=== PATIENT | female | born 1940 | race Caucasian/White ===

== ENCOUNTER 2019-06-20 12:13 | Inpatient (IN) | payer MEDICARE, MEDICAID ==
[~2019-06-20] VITALS: Ht 149.9 cm; Wt 70.3 kg
[~2019-06-20 12:13] MED LIST: AMLO5TAB PO; ASPI-1718 PO; CARV6.25 PO; DORZ10SO23 OP; HYDR-3298 PO; INSU100S45 SUBQ; LATA2.5S8 OP; LIP80 PO; MOME0.051 NS; SYN.075 PO
--- NOTE | 2019-06-20 12:13 | NUR ---
PT BIBA TO BED 09, RN EVALUATING PT AT BEDSIDE.
[2019-06-20 12:22] VITALS: BP 154/46
--- NOTE | 2019-06-20 12:22 | NUR ---
Dr. Duran is evaluating the patient at bedside.
[2019-06-20] MEDS ORDERED: ONDANSETRON 4 MG/2 ML VIAL IVP ONE (12:35)
[2019-06-20] MEDS ORDERED: MORPHINE SULFATE 2 MG/ML SYR IVP ONE (12:35)
--- NOTE | 2019-06-20 12:42 | NUR ---
LABS AT BEDSIDE, DRAWING ORDERED LABS
--- NOTE | 2019-06-20 12:55 | NUR ---
REPOSITIONED PT UP IN [facility]; NC 3L 02 APPLIED, 96% RA HAD BEEN C/O FATIGUED WITH MINIMAL WALKING SINCE 3 DAYS---WORSE TODAY WITH CHEST PAIN NON RADIATING TIGHTNESS AFTER MEDICATED PT DENIES PAIN, BREATHING EASIER WHILE ON OXYGEN
[2019-06-20 12:58] LABS: BASOPHILS # (AUTO) 0.1 K/uL (0.00-0.22); BASOPHILS % (AUTO) 0.8 % (0.0-2.0); EOSINOPHILS # (AUTO) 0.2 K/uL (0-0.4); MEAN CORPUSCULAR HEMOGLOBIN 26 pg (27-31); MONOCYTES % (AUTO) 11.3 % (1.7-9.3); NEUTROPHILS % (AUTO) 71.4 % (42.2-75.2)
[2019-06-20 13:05] LABS: EOSINOPHILS % (AUTO) 2.6 % (0.0-4.0); HEMATOCRIT 20.4 % (36-48); LYMPHOCYTES # (AUTO) 1.2 K/uL (2.5-16.5); LYMPHOCYTES % (AUTO) 13.9 % (20.5-51.1); MEAN CORPUSCULAR HGB CONC 32 g/dL (33-37); MEAN CORPUSCULAR VOLUME 81.1 fL (80-94); NEUTROPHILS # (AUTO) 6.4 K/uL (1.8-7.7); PLATELET COUNT (AUTO) 287 K/uL (140-450); RED BLOOD CELL COUNT(AUTO) 2.51 MIL/uL (4.20-5.40); RED CELL DISTRIBUTION WIDTH 16.3 % (11.6-13.7); WHITE BLOOD COUNT (AUTO) 8.9 K/uL (4.8-10.8)
--- NOTE | 2019-06-20 13:08 | NUR ---
Patient returned from CT scan. RN re-evaluating patient at bedside.
[2019-06-20 13:13] LABS: ANION GAP 13.7 (8-16); CARBON DIOXIDE 23.8 mmol/L (21-32); CHLORIDE 103 mmol/L (98-107); CREATININE 0.7 mg/dL (0.6-1.3); GLUCOSE 201 mg/dL (74-106); POTASSIUM 4.5 mmol/L (3.5-5.1); SODIUM SERUM 136 mmol/L (136-145); UREA NITROGEN, BLOOD 22 mg/dL (7-18)
[2019-06-20 13:16] LABS: HEMOGLOBIN 6.6 g/dL (12.0-16.0)
[2019-06-20 13:19] LABS: ALBUMIN 2.7 g/dL (3.4-5.0); ASPARTATE AMINOTRANSFERASE 15 U/L (15-37); TOTAL BILIRUBIN 0.6 mg/dL (0.0-1.0)
[2019-06-20 13:22] LABS: PROTHROMBIN TIME 12.5 secs (10.8-13.4)
--- NOTE | 2019-06-20 14:35 | NUR ---
PT TAKEN TO RESTROOM BY WHEELCHAIR TO GIVE UA
--- NOTE | 2019-06-20 15:26 | NUR ---
LAB IS MADE AWARE BLOOD CONSENT IS SIGNED
[2019-06-20] MEDS ORDERED: GABA400C PO (16:07)
[2019-06-20] MEDS ORDERED: IRBE300T56 PO (16:07)
[2019-06-20] MEDS ORDERED: RIVA20TA PO (16:07)
[2019-06-20] MEDS ORDERED: INSU100I7 SQ (16:07)
[2019-06-20] MEDS ORDERED: BACL10TA4 PO (16:07)
--- NOTE | 2019-06-20 16:15 | NUR ---
PT TO RECEIVE 1 UNIT OF PRB. PT MADE AWARE OF SIGNS/SX TO WATCH FOR DURING TRANSFUSSION, FLANK PAIN, DIZZINESS, SHORT OF BREATH, PAIN. PT VERBALIZED UNDERSTANDING. PRE VS TAKEN, TRANSFUSSION BEGAN AT 1620. VERFIED PT TRANSFUSSION WITH DONALD ASH.
--- NOTE | 2019-06-20 16:45 | NUR ---
PT DENIES PAIN, SOB, DIZZINESS WITH BLOOD TRANSFUSSION. VITAL SIGNS STABLE, IV PATTENT.
[2019-06-20] MEDS ORDERED: ONDANSETRON 4 MG/2 ML VIAL IVP PRN (17:00)
[2019-06-20] MEDS ORDERED: BACLOFEN 10 MG TAB PO PRN (17:00)
[2019-06-20] MEDS ORDERED: MAGNESIUM OXIDE 400 MG TAB PO PRN (17:00)
[2019-06-20] MEDS ORDERED: ZOLPIDEM 5 MG TAB PO PRN (17:00)
[2019-06-20] MEDS ORDERED: POTASSIUM CHLORIDE 10 MEQ TABER PO PRN (17:00)
[2019-06-20] MEDS ORDERED: diphenhydrAMINE 50 MG/ML VIAL IVP PRN (17:00)
[2019-06-20] MEDS ORDERED: cloNIDine 0.1 MG TAB PO PRN (17:00)
[2019-06-20] MEDS ORDERED: ACETAMINOPHEN 325 MG TAB PO PRN (17:00)
[2019-06-20 17:02] LABS: APPEARANCE,URINE CLEAR (CLEAR); BILIRUBIN,URINE NEGATIVE (NEGATIVE); BLOOD, URINE TRACE-L (NEGATIVE); COLOR,URINE YELLOW (YELLOW); LEUKOCYTE ESTERASE ,URINE NEGATIVE (NEGATIVE); NITRITE, URINE NEGATIVE (NEGATIVE); UGLUCOSE NEGATIVE (NEGATIVE)
[2019-06-20 17:25] VITALS: BP 162/57
--- NOTE | 2019-06-20 17:25 | NUR ---
Patient will be admitted to care of DR EDWARDS. Admited to MED SURGE TELE. Will go to room 126B. Belongings list completed. Report to DONALD MORENO.
[2019-06-20] MEDS: GABAPENTIN 300 MG CAP PO SCH (18:21)
--- NOTE | 2019-06-20 18:46 | NUR ---
PT BLOOD TRANSFUSION FINISHED. PT TOLERATED WELL. NO SIGNS OF TRANSFUSION REACTION NOTED. 2ND BAG ON PACKED RBC'S TO BE INFUSED BY WAITER AND CASHIER WHEN READY.
[2019-06-20 19:18] LABS: RBC,URINE 0-5 /HPF (0-5); WBC,URINE 0-5 /HPF (0-5)
--- NOTE | 2019-06-20 19:19 | NUR ---
RECEIVED PT FROM ED DEPARTMENT FOR CONTINUITY OF CARE. PT IS AAOX4, CUBAN SPEAKING. PT DAUGHTER AT BEDSIDE TO HELP TRANSLATE AND ANSWER QUESTIONS. PT SKIN IS INTACT, VITALS STABLE. AMBULATORY. EXPLAINED POC TO PT AND PT AND FAMILY VERBALIZED UNDERSTANDING. SAFETY MEASURES IN PLACE. MRSA TAKEN. WILL ROUND FREQUENTLY ON P.
--- NOTE | 2019-06-20 19:48 | NUR ---
ENDORSED PT TO MID LEVEL GAME DESIGNER FOR CONTINUITY OF CARE. PT IN STABLE CONDITION AT THIS TIME.
[2019-06-20 20:00] VITALS: BP 169/45
[2019-06-20] MEDS: ATORVASTATIN 80 MG TAB PO SCH (20:20)
[2019-06-20] MEDS: CARVEDILOL 6.25 MG TAB PO SCH (20:21)
--- NOTE | 2019-06-20 20:30 | NUR ---
SECOND UNIT OF BLOOD TRANSFUSION INITIATED.
[2019-06-21] VITALS: BP 150/48
--- NOTE | 2019-06-21 01:00 | NUR ---
BLOOD TRANSFUSION DONE. VITAL SIGNS WITHIN NORMAL LIMITS. NO S/S OF DISTRESS NOTED
[2019-06-21] MEDS: DEXT 5% / NACL 0.45% 1,000 ML IV SCH ×2 (01:22→17:03)
[2019-06-21 02:06] LABS: BASOPHILS # (AUTO) 0.1 K/uL (0.00-0.22); BASOPHILS % (AUTO) 0.7 % (0.0-2.0); EOSINOPHILS # (AUTO) 0.3 K/uL (0-0.4); EOSINOPHILS % (AUTO) 2.8 % (0.0-4.0); HEMATOCRIT 28.3 % (36-48); HEMOGLOBIN 9.3 g/dL (12.0-16.0); LYMPHOCYTES # (AUTO) 1.8 K/uL (2.5-16.5); LYMPHOCYTES % (AUTO) 17.8 % (20.5-51.1); MEAN CORPUSCULAR HEMOGLOBIN 28 pg (27-31); MEAN CORPUSCULAR HGB CONC 33 g/dL (33-37); MEAN CORPUSCULAR VOLUME 83.2 fL (80-94); MONOCYTES % (AUTO) 10.5 % (1.7-9.3); NEUTROPHILS # (AUTO) 6.7 K/uL (1.8-7.7); NEUTROPHILS % (AUTO) 68.2 % (42.2-75.2); PLATELET COUNT (AUTO) 246 K/uL (140-450); RED CELL DISTRIBUTION WIDTH 15.4 % (11.6-13.7); WHITE BLOOD COUNT (AUTO) 9.8 K/uL (4.8-10.8)
[2019-06-21 02:23] LABS: ALBUMIN 2.7 g/dL (3.4-5.0); ANION GAP 12.6 (8-16); ASPARTATE AMINOTRANSFERASE 16 U/L (15-37); CARBON DIOXIDE 24.5 mmol/L (21-32); CHLORIDE 105 mmol/L (98-107); CREATININE 0.6 mg/dL (0.6-1.3); GLUCOSE 84 mg/dL (74-106); POTASSIUM 4.1 mmol/L (3.5-5.1); SODIUM SERUM 138 mmol/L (136-145); TOTAL BILIRUBIN 0.7 mg/dL (0.0-1.0); UREA NITROGEN, BLOOD 16 mg/dL (7-18)
--- NOTE | 2019-06-21 03:00 | NUR ---
UPDATED DR PEARSON ABOUT THE POST TRANSFUSION CBC AND INFORMED HIM ABOUT THE INCREASED TROPONIN LEVEL OF 0.234. NO NEW ORDERS AT THIS TIME
[2019-06-21 04:02] VITALS: BP 154/59
[2019-06-21 06:11] LABS: BASOPHILS # (AUTO) 0.1 K/uL (0.00-0.22); BASOPHILS % (AUTO) 0.7 % (0.0-2.0); EOSINOPHILS # (AUTO) 0.2 K/uL (0-0.4); EOSINOPHILS % (AUTO) 2.5 % (0.0-4.0); HEMATOCRIT 27.7 % (36-48); LYMPHOCYTES # (AUTO) 1.7 K/uL (2.5-16.5); LYMPHOCYTES % (AUTO) 17.7 % (20.5-51.1); MEAN CORPUSCULAR HEMOGLOBIN 27 pg (27-31); MEAN CORPUSCULAR HGB CONC 33 g/dL (33-37); MEAN CORPUSCULAR VOLUME 83.9 fL (80-94); MONOCYTES # (AUTO) 1.2 K/uL (0.8-1.0); NEUTROPHILS # (AUTO) 6.5 K/uL (1.8-7.7); NEUTROPHILS % (AUTO) 67.1 % (42.2-75.2); PLATELET COUNT (AUTO) 237 K/uL (140-450); RED CELL DISTRIBUTION WIDTH 15.8 % (11.6-13.7); WHITE BLOOD COUNT (AUTO) 9.6 K/uL (4.8-10.8)
[2019-06-21] MEDS: LEVOTHYROXINE 0.05 MG TAB PO SCH (06:53)
--- NOTE | 2019-06-21 07:28 | NUR ---
PT REPORT GIVEN AT BEDSIDE. PT ENDORSED IN STABLE CONDITION
[2019-06-21 08:00] VITALS: BP 158/48
[2019-06-21] MEDS: amLODIPine 5 MG TAB PO SCH (08:27)
[2019-06-21] MEDS: GABAPENTIN 300 MG CAP PO SCH ×3 (08:27→16:52)
--- NOTE | 2019-06-21 08:27 | NUR ---
GIVEN MORNING MEDICATIONS PO. HELD CARVIDOLOL, HR 55 BMP. PATIENT SWALLOWED PILLS WELL. EXPLAINED TO PATIENT AND GRAND-DAUGHTER PURPOSE AND SIDE EFFECTS OF MEDICATIONS. VERBALIZED UNDERSTANDING. CALL LIGHT WITHIN REACH. BED IN LOW. WILL CONTINUE TO MONITOR.
[2019-06-21] MEDS: CARVEDILOL 6.25 MG TAB PO SCH ×2 (08:30→20:12)
--- NOTE | 2019-06-21 09:49 | NUR ---
DR. EDWARDS MADE ROUNDS. SPOKE TO PATIENT AND GRAND-DAUGHTER.
--- NOTE | 2019-06-21 09:58 | NUR ---
PATIENT HAS BEEN SCREENED AND CATEGORIZED MODERATE NUTRITION RISK. PATIENT WILL BE SEEN WITHIN 3-5 DAYS OF ADMISSION. 06/23/19 06/25/[address]
[2019-06-21] MEDS ORDERED: fentaNYL 0.05 MG/ML VIAL ONE (11:16)
[2019-06-21] MEDS ORDERED: MIDAZOLAM 2 MG/2 ML VIAL ONE (11:17)
--- NOTE | 2019-06-21 11:25 | NUR ---
PT IS OFF THE UNIT NOW FOR AN EGD.
[2019-06-21] MEDS ORDERED: fentaNYL 0.075 MG/HR PATCH TD SCH (11:55)
[2019-06-21] MEDS ORDERED: FLUMAZENIL 0.5 MG/5 ML VIAL IVP ONE ×2 (11:55→12:07)
[2019-06-21] MEDS ORDERED: NALOXONE 0.4 MG/ML VIAL IVP ONE (11:55)
[2019-06-21] MEDS ORDERED: MIDAZOLAM 2 MG/2 ML VIAL IVP ONE (11:55)
[2019-06-21 12:00] VITALS: BP 145/42
[2019-06-21] MEDS ORDERED: NALOXONE 0.4 MG/ML VIAL ONE (12:05)
[2019-06-21] MEDS ORDERED: fentaNYL 0.05 MG/ML VIAL IVP ONE (12:15)
--- NOTE | 2019-06-21 12:30 | NUR ---
PATIENT CAME BACK FROM EGD PROCEDURE VIA GURNEY. PATIENT IS AWAKE AND ALERT. NO SIGNS OF DISTRESS NOTED. PATIENT DENIES PAIN. RESPIRATIONS EVEN AND UNLABORED, 2L O2 VIA NC. ON TELE MONITOR. SKIN INTACT. WILL CONTINUE TO MONITOR. BED IN LOW POSITION. CALL LIGHT WITHIN REACH.
[2019-06-21] MEDS ORDERED: BOWEL EVACUANT DRINK 4,000 ML PDS PO SCH (13:00)
--- NOTE | 2019-06-21 14:20 | NUR ---
PATIENT IS RESTING AT THIS TIME. PATIENT DENIES PAIN. WILL CONTINUE TO MONITOR.
[2019-06-21 16:00] VITALS: BP 130/45
--- NOTE | 2019-06-21 16:53 | NUR ---
GIVEN GABAPENTIN PO. EDUCATED PATIENT REGARDING PURPOSE AND SIDE EFFECTS. VERBALIZED UNDERSTANDING. WILL CONTINUE TO MONITOR.
--- NOTE | 2019-06-21 18:31 | NUR ---
PATIENT HAD BM, BLACK IN COLOR. PATIENT DENIES PAIN. WILL CONTINUE TO MONITOR. FAMILY AT BEDSIDE.
--- NOTE | 2019-06-21 19:10 | NUR ---
ENDORSED PT TO TEXTILES PRINTER NURSE FOR CONTINUITY OF CARE.
--- NOTE | 2019-06-21 19:11 | NUR ---
RECEIVED BEDSIDE REPORT FROM DAY RN. PT IS TURKMEN SPEAKING. AAOX4. ON ROOM AIR RESPIRATIONS ARE EQUAL AND UNLABORED. SKIN IS INTACT. PT AMBULATORY WITH STANDBY ASSIST. IV ON L HAND INFUSING IVF PER ORDERS. PT HAD EGD TODAY AND COLOSCOPY WAS CANCELLED PER RN. LBM TODAY PER RN SKYLAR. POC DISCUSSED WITH PT AND FAMILY. BED ALARM IS ON. CALL LIGHT IS WITHIN REACH. WILL CONTINUE TO MONITOR.
[2019-06-21 20:00] VITALS: BP 165/59
[2019-06-21] MEDS: PANTOPRAZOLE 40 MG INJ VIAL IVP SCH (20:11)
[2019-06-21] MEDS: ATORVASTATIN 80 MG TAB PO SCH (20:12)
--- NOTE | 2019-06-21 20:12 | NUR ---
TD MEDICATIONS GIVEN PER ORDERS. VITAL SIGNS ARE WITHIN NORMAL LIMITS. PATIENT TOLERATED WELL. ALL SAFETY MEASURES ARE IN PLACE. CALL LIGHT IS WITHIN REACH.
--- NOTE | 2019-06-21 23:03 | NUR ---
ASSIST PATIENT TO BEDSIDE COMMODE NO BM. VITAL SIGNS ARE WITHIN NORMAL LIMITS. ADMINISTERED PRN AMBIEN FOR INSOMNIA. PT TOLERATED WELL. ALL NEEDS MET AT THIS TIME. CALL LIGHT IS WITHIN REACH.
[2019-06-22] VITALS (7 sets, daily range): BP systolic 105–166; BP diastolic 35–91
--- NOTE | 2019-06-22 01:00 | NUR ---
PATIENT IS ASLEEP IN BED. CHEST RISE AND FALL. NO S/S OF DISTRESS. SAFETY MEASURES ARE IN PLACE. CALL LIGHT IS WITHIN REACH.
--- NOTE | 2019-06-22 03:31 | NUR ---
PATIENT IS SLEEPING COMFORTABLY IN BED. CHEST RISE AND FALL. CALL LIGHT IS WITHIN REACH.
--- NOTE | 2019-06-22 04:20 | NUR ---
VITAL SIGNS ARE WITHIN NORMAL LIMITS. ALL NEEDS MET AT THIS TIME. SAFETY MEASURES ARE IN PLACE. CALL LIGHT IS WITHIN REACH.
[2019-06-22] MEDS: LEVOTHYROXINE 0.05 MG TAB PO SCH (05:32)
[2019-06-22 06:43] LABS: BASOPHILS # (AUTO) 0.1 K/uL (0.00-0.22); BASOPHILS % (AUTO) 0.7 % (0.0-2.0); EOSINOPHILS # (AUTO) 0.2 K/uL (0-0.4); EOSINOPHILS % (AUTO) 2.3 % (0.0-4.0); HEMATOCRIT 25.9 % (36-48); HEMOGLOBIN 8.5 g/dL (12.0-16.0); LYMPHOCYTES # (AUTO) 1.1 K/uL (2.5-16.5); LYMPHOCYTES % (AUTO) 11.7 % (20.5-51.1); MEAN CORPUSCULAR HEMOGLOBIN 27 pg (27-31); MEAN CORPUSCULAR HGB CONC 33 g/dL (33-37); MEAN CORPUSCULAR VOLUME 82.9 fL (80-94); MONOCYTES # (AUTO) 1.3 K/uL (0.8-1.0); MONOCYTES % (AUTO) 13.1 % (1.7-9.3); NEUTROPHILS % (AUTO) 72.2 % (42.2-75.2); PLATELET COUNT (AUTO) 211 K/uL (140-450); RED BLOOD CELL COUNT(AUTO) 3.12 MIL/uL (4.20-5.40); RED CELL DISTRIBUTION WIDTH 15.7 % (11.6-13.7); WHITE BLOOD COUNT (AUTO) 9.6 K/uL (4.8-10.8)
--- NOTE | 2019-06-22 07:19 | NUR ---
GAVE BEDSIDE REPORT TO DAY RN. PT ENDORSED IN STABLE CONDITION.
--- NOTE | 2019-06-22 07:20 | NUR ---
RECEIVED PATIENT FROM NIGHT NURSE. PATIENT IS SITTING IN BED AT THIS TIME. AAOx4. NO DISTRESS NOTED. RESPIRATIONS EVEN AND UNLABORED, ON ROOM AIR. DENIES PAIN. VITAL SIGNS 150/50, RESP 16 BREATHES PER MINUTE, HR 84. TEMP 98.8, ORAL. IV SITE LEFT AC RUNNING D5 1/2 NS AT 60 ML/HR. IV PATENT AND INTACT. BOWEL SOUNDS PRESENT X4 QUADS. SKIN INTACT. BED IN LOW POSITION. CALL LIGHT WITHIN REACH.
[2019-06-22] MEDS: GABAPENTIN 300 MG CAP PO SCH ×2 (08:31→12:42)
[2019-06-22] MEDS: PANTOPRAZOLE 40 MG INJ VIAL IVP SCH (08:31)
[2019-06-22] MEDS: amLODIPine 5 MG TAB PO SCH (08:33)
--- NOTE | 2019-06-22 08:39 | NUR ---
GIVEN MORNING MEDICATIONS PO. HELD COREG PER PARAMETER, HR 59 BPM. EDUCATED PATIENT INDICATIONS AND SIDE EFFECTS. PATIENT VERBALIZED UNDERSTANDING. WILL CONTINUE TO MONITOR.
[2019-06-22] MEDS ORDERED: CARVEDILOL 3.125 MG TAB PO SCH (09:00)
--- NOTE | 2019-06-22 11:56 | NUR ---
PATIENT IS WATCHING TV AT THIS TIME. NO SIGNS OF DISTRESS NOTED. VITAL SIGNS CHECKED. DENIES PAIN. BED IN LOW POSITION. CALL LIGHT WITHIN REACH.
[2019-06-22] MEDS: DEXT 5% / NACL 0.45% 1,000 ML IV SCH (12:42)
--- NOTE | 2019-06-22 13:34 | NUR ---
PATIENT BP 160/53. RECHECKED BP NOW 168/51. HR 68. CLONIDINE GIVEN FOR SBP 160 OR ABOVE. EDUCATED PATIENT ON THE PURPOSE AND SIDE EFFECTS. WILL REASSESS PATIENT. DAUGHTER IS AT BEDSIDE.
--- NOTE | 2019-06-22 15:04 | NUR ---
RECHECKED PATIENT BP 154/71. HR 77, O2SAT 100%. PATIENT DENIES ANY DIZZINESS, HEADACHE, CHEST PAIN, PAIN.
--- NOTE | 2019-06-22 16:10 | NUR ---
PATIENT IS GIVEN DISCHARGE INSTRUCTIONS USING [employer] #[id number] TO PATIENT AND DAUGHTER. EXPLAINED TO PATIENT DISCHARGE INSTRUCTIONS, WHAT MEDICATIONS TO CONTINUE AND TO DISCONTINUE PER MD, AND TO RESTART XERALTO IN ONE WEEK IF NO GI BLEED WELL TO FOLLOW UP WITH PCP IN ONE WEEK. PATIENT AND DAUGHTER VERBALIZED UNDERSTANDING. PATIENT SIGNED DISCHARGE PAPERS.
--- NOTE | 2019-06-22 16:20 | NUR ---
PATIENT IS DISCHARGE TO HOME WITH DAUGHTER VIA WHEELCHAIR. IV REMOVED. PATIENT DENIES ANY PAIN AT THIS TIME.
--- NOTE | 2019-06-22 16:23 | NUR ---
DISCHARGE PLANNING: CONTACTED CHARANJIT ROUSE AT [phone], REGARDING ORDER FOR OUT PATIENT COLONOSCOPY. SHE PROVIDED ME THE PHONE NUMBER [phone] FOR OUT PATIENT AUTH DEPARTMENT. CONTACTED THE PROVIDED NUMBER IT SAID UNABLE TO PROCESS CALL OUT OF AREA. CONTACTED HER AGAIN TO CONFIRM THE NUMBER. SHE STATED SHE TRIED CALLING THAT NUMBER WELL AND SAME THING. SHE SAID SHE IS TRYING TO FIND OUT THE NUMBER FOR THAT DEPARTMENT. I INFORMED HER THAT THE IPA IS [employer]. SHE STATED TO CALL [phone] AND FAX NUMBER [phone]. CONTACTED THE PROVIDED NUMBER, ABLE TO SPEAK TO TRAV, SHE STATED PATIENT IS OUT OF AREA AND PROVIDED ME WITH [phone] OPT 1 AND FAX NUMBER [phone]. CONTACTED THE PROVIDED NUMBER, ABLE TO SPEAK TO CHARANJIT FERNÁNDEZ. SHE STATED TO GO AHEAD AND FAX THE ORDER AND THEY WILL CONTACT THE PATIENT FOR APPOINTMENT.
== END 2019-06-22 16:20 | disposition home or self-care (01) | DRG 377 ==
LOC: MED 12:13 → MMU 15:37
PROVIDERS: ADMIT Internal Medicine Pulmonary Disease; ATTEND Internal Medicine Pulmonary Disease
PROC: 30233N1 Transfusion of Nonautologous Red Blood Cells into Peripheral Vein, Percutaneous Approach (ICD-10-PCS; 2019-06-20)
PROC: 0DB68ZX Excision of Stomach, Via Natural or Artificial Opening Endoscopic, Diagnostic (ICD-10-PCS; principal; 2019-06-21 11:15)
DX: K29.01 Acute gastritis with bleeding (principal); I21.A1 Myocardial infarction type 2; I48.20 Chronic atrial fibrillation, unspecified; I48.92 Unspecified atrial flutter; E78.00 Pure hypercholesterolemia, unspecified; R51 Headache; L40.9 Psoriasis, unspecified; D64.9 Anemia, unspecified; E03.9 Hypothyroidism, unspecified; E11.9 Type 2 diabetes mellitus without complications; I11.0 Hypertensive heart disease with heart failure; I50.9 Heart failure, unspecified; E78.5 Hyperlipidemia, unspecified; Z79.4 Long term (current) use of insulin; Z79.01 Long term (current) use of anticoagulants; Z79.899 Other long term (current) drug therapy; Z79.82 Long term (current) use of aspirin; Z90.49 Acquired absence of other specified parts of digestive tract
CPT/HCPCS: 36415; 70450; 71045; 80053; 81001; 82948; 83880; 84484; 85025; 85610; 85730; 86886; 86900; 86901; 86920; 87081; 88305; 88312; 88313; 93005; 96374; 96375; 99291; C9113; J2250; J2270; J2310; J2405; J3010; J3490; J7030; J7042; P9016; Q0092